=== PATIENT | female | born 1960 | race Caucasian/White ===

== ENCOUNTER → 2019-06-25 | Outpatient (CLI) | payer OTHER ==
--- NOTE | 2019-06-25 15:50 | RAD ---
3 view study of the left knee Clinical indications: Left knee pain. FINDINGS: No acute fracture or dislocation or lytic process is evident. No significant left knee joint effusion is evident. There is mild degenerative spurring with mild joint space narrowing involving the medial tibiofemoral joint compartment. Soft tissue swelling is seen medially. There is mild degenerative spurring of the patellofemoral joint compartment. IMPRESSION: Mild primary degenerative osteoarthritis. Mild soft tissue swelling medially. Electronically signed by: Phil Ray MD (06/25/2019 3:46 PM) [place] [id number]
== END | disposition home or self-care (01) ==
LOC: RAD 09:25
PROVIDERS: ATTEND Surgery
DX: M17.12 Unilateral primary osteoarthritis, left knee (principal); M79.89 Other specified soft tissue disorders
CPT/HCPCS: 73560